=== PATIENT | female | born 1930 | race American Indian/Alaskan Native ===

== ENCOUNTER 2018-01-17 08:17 | Day surgery (SDC) | payer MEDICARE ==
[2018-01-16 11:08] VITALS: BMI 27.4
[2018-01-17 09:02] VITALS: O2SAT 100
[2018-01-17] MEDS ORDERED: Lactated Ringer's 1,000 ML IV ONE ×2 (10:30)
[2018-01-17] MEDS ORDERED: Propofol 10 mg/ml Inj (20 ML) ONE (10:32)
--- NOTE | 2018-01-17 10:35 | CP.SDSHP ---
Same Day Surgery H & P - History Proposed Procedure: COLONSCOPY Pre-Op Diagnosis: SEE NOTES - Previous Medical/Surgical History Cardiac: Hypertension Endocrine/Metabolic: Other Misc: Other Pain: 2.Mild Pain - Allergies Allergies: Allergies No Known Allergies Allergy (Verified 01/17/18 08:48) - Physical Exam General Appearance: N Vital Signs: Vital Signs 01/17/18 01/17/18 09:01 09:12 Temperature 98.9 F Pulse Rate 80 80 Respiratory 20 Rate Blood Pressure 140/84 O2 Sat by Pulse 100 Oximetry Mental Status: Alert & Oriented x3 Neuro: WNL Heart: Other Lungs: WNL GI: WNL - {Optional Preform as Required} Breast: WNL Abdomen: Other Rectal: Other Integument: WNL : WNL Ortho: Other ENT: WNL - Impression Pt. Evaluated Today:Candidate for Anesthesia & Procedure: Yes - Date & Time Time: 10:35 Short Stay Discharge - Short Stay Discharge Admitting Diagnosis/Reason for Visit: COLON SCREENING Disposition: HOME/ ROUTINE Referrals: Linden Yeboah MD [Primary Care Provider] -
[2018-01-17 11:08] VITALS: TEMP 97.7
[2018-01-17 12:10] VITALS: BP 114/57; PULSE 59; RESP 12
== END 2018-01-17 12:10 | disposition home or self-care (01) ==
LOC: C.ENDO 08:17
PROVIDERS: ATTEND Specialist
DX: Z12.11 Encounter for screening for malignant neoplasm of colon (principal); K64.8 Other hemorrhoids; K57.90 Diverticulosis of intestine, part unspecified, without perforation or abscess without bleeding; K58.9 Irritable bowel syndrome, unspecified
CPT/HCPCS: 45380; 88305; J2001; J2704; J7120